=== PATIENT | female | born 1980 | race Caucasian/White ===

== ENCOUNTER 2017-12-04 01:38 | Emergency (ER) | payer OTHER ==
[~2017-12-04] VITALS: Ht 160 cm; Wt 62.6 kg
[~2017-12-04 01:38] MED LIST: ACETAMINOPHEN-1 EAC1 PO; BENTYL 20 MG TA20 M1 PO; CARAFATE 1 GM TA1 G1 PO; CIPRO500 MG PO; FLAGYL500 MG PO; IRON325 PO; MEDROLDOSEPACK PO; NOHOMEMEDICATIONS; NORCO 5-325 TA1 EACH PO; NORFLEX100 MG PO; PROAIR HFA8.5 GM INH; PROBIOTIC1 EAC1 PO; PROMETHAZINE D480 ML PO; VITAMIN D1000 UNI1 PO; ZOFRAN ODT4 MG PO; ZPAK PO
[2017-12-04 01:59] LABS: ABSOLUTE BASOPHILS 0.1 thou/uL (0.0-0.2); ABSOLUTE EOSINOPHILS 0.2 thou/uL (0.0-0.7); ABSOLUTE LYMPHOCYTES 4.3 thou/uL (0.8-5.3); ABSOLUTE MONOCYTES 0.7 thou/uL (0.0-1.2); ABSOLUTE NEUTROPHILS 3.4 thou/uL (1.6-8.1); BASOPHILS 0.9 %; EOSINOPHILS 2.6 %; HEMOGLOBIN 13.5 gm/dL (12.0-15.0); LYMPHOCYTES 49.1 %; MCH 31.2 pg (26.0-34.0); MCHC 33.6 g/dL (28.0-37.0); MCV 92.9 fL (80.0-100.0); MONOCYTES 8.6 %; MPV 7.9 fl. (7.2-11.1); NUCLEATED RBCS 0 /100WBC; PLATELET COUNT* 234 thou/uL (150-400); POLYS 38.8 %; RBC 4.31 mil/uL (4.20-5.00); WBC 8.7 thou/uL (4.0-11.0)
[2017-12-04 02:02] LABS: CALCIUM 8.5 mg/dL (8.5-10.1); CREATININE 0.7 mg/dL (0.6-1.3); POTASSIUM 3.3 mmol/L (3.5-5.1)
[2017-12-04 02:07] LABS: ALBUMIN 3.6 g/dL (3.4-5.0); TOTAL BILIRUBIN 0.1 mg/dL (<0.1-1.0); TOTAL PROTEIN 6.7 g/dL (6.4-8.2)
[2017-12-04 02:19] LABS: URINE BILIRUBIN NEGATIVE (Negative); URINE BLOOD NEGATIVE (Negative); URINE CLARITY CLEAR; URINE COLOR YELLOW; URINE GLUCOSE-RANDOM NEGATIVE (Negative); URINE KETONES TRACE (Negative); URINE LEUKOCYTES-REFLEX NEGATIVE (Negative); URINE NITRITE-REFLEX NEGATIVE (Negative); URINE PROTEIN NEGATIVE (Negative); URINE UROBILINOGEN 0.2 E.U./dl (0.2-1.0)
[2017-12-04 02:25] LABS: AMP/METHAMP POSITIVE (Negative); BARBITURATES Negative (Negative); BENZODIAZEPINES Negative (Negative); COCAINE Negative (Negative); METHADONE Negative (Negative); OPIATES Negative (Negative); PCP Negative (Negative); THC Negative (Negative)
[2017-12-04] MEDS ORDERED: ZOFRAN ODT4 MG PO (02:35)
[2017-12-04] MEDS ORDERED: HYDROCODONE-AP1 EAC6 PO (02:35)
[2017-12-04 02:58] VITALS: BP 100/59
== END 2017-12-04 02:59 | disposition home or self-care (01) ==
LOC: M.ERS 01:38
PROVIDERS: Emergency Medicine
DX: R10.13 Epigastric pain (principal); F17.210 Nicotine dependence, cigarettes, uncomplicated

== ENCOUNTER 2021-06-06 18:57 | Emergency (ER) | payer OTHER ==
[~2021-06-06 18:57] MED LIST changes: +HYDROCODONE-AP1 EAC6 PO
== END 2021-06-06 19:19 | disposition left against medical advice (07) ==
LOC: M.ERS 18:57
DX: R09.81 Nasal congestion (principal); R50.9 Fever, unspecified; M79.10 Myalgia, unspecified site; Z53.21 Procedure and treatment not carried out due to patient leaving prior to being seen by health care provider